=== PATIENT | female | born 1995 | race Caucasian/White ===

== ENCOUNTER 2023-05-02 15:09 | Emergency (ER) | payer SELFPAY ==
[2023-05-02 16:31] LABS: APPEARANCE,URINE CLOUDY; BILIRUBIN,URINE NEGATIVE (NEGATIVE); COLOR,URINE YELLOW; GLUCOSE,URINE NEGATIVE (NEGATIVE); KETONES,URINE NEGATIVE (NEGATIVE); LEUKOCYTE ESTERASE,URINE SMALL (NEGATIVE); NITRITE,URINE NEGATIVE (NEGATIVE); OCCULT BLOOD,URINE NEGATIVE (NEGATIVE); PROTEIN,URINE NEGATIVE (NEGATIVE); UROBILINOGEN,URINE 0.2 EU/dL (<2.0)
[2023-05-02 16:38] LABS: AMORPHOUS SEDIMENT,URINE MANY (NEGATIVE); BACTERIA,URINE FEW (NEGATIVE); EPITHELIAL CELLS,URINE OCCASIONAL (NONE-FEW); RBC,URINE 0-2 (0-2/HPF)
[2023-05-02 16:38] LABS: BASOPHILS ABSOLUTE AUTO 0.01 K/uL (0.00-0.20); BASOPHILS PERCENT AUTO 0.1 % (0.0-1.0); EOSINOPHILS ABSOLUTE AUTO 0.03 K/uL (0.00-0.45); EOSINOPHILS PERCENT AUTO 0.4 % (0.0-6.0); HEMOGLOBIN 12.7 g/dL (12.0-16.0); IMMATURE GRAN ABSOLUTE AUTO 0.02 K/uL (0.00-0.05); IMMATURE GRAN PERCENT AUTO 0.3 % (0.0-0.4); LYMPHOCYTES ABSOLUTE AUTO 1.52 K/uL (1.00-4.80); LYMPHOCYTES PERCENT AUTO 21.6 % (24.0-44.0); MEAN CORPUSCULAR HEMOGLOBIN 31.4 pg (28.0-32.0); MEAN CORPUSCULAR HGB CONC 35.3 g/dL (32.0-36.0); MEAN CORPUSCULAR VOLUME 88.9 fL (83.0-99.0); MEAN PLATELET VOLUME 10.6 fL (9.4-12.3); MONOCYTES ABSOLUTE AUTO 0.48 K/uL (0.00-0.80); MONOCYTES PERCENT AUTO 6.8 % (0.0-8.0); NEUTROPHILS ABSOLUTE AUTO 4.99 K/uL (1.80-7.70); NEUTROPHILS PERCENT AUTO 70.8 % (41.0-71.0); PLATELET COUNT,PLT 192 K/uL (150-400); RED BLOOD CELL COUNT 4.05 M/uL (4.10-5.30); WHITE BLOOD CELL COUNT,WBC 7.05 K/uL (3.9-11.3)
[2023-05-02 16:39] LABS: FINE GRANULAR CASTS,URINE RARE (NEGATIVE)
[2023-05-02 17:05] LABS: A/G RATIO 0.8 (0.9-1.6); ALBUMIN 3.2 g/dL (3.4-5.0); BILIRUBIN TOTAL 0.2 mg/dL (0.2-1.0); CALCIUM 9.1 mg/dL (8.5-10.1); CARBON DIOXIDE,CO2 29.9 mmol/L (21.0-32.0); CREATININE 0.5 mg/dL (0.6-1.0); EST CRCL DRUG DOSING (CG) 147.23 mL/min; POTASSIUM,K 4.1 mmol/L (3.5-5.1); PROTEIN TOTAL,TP 7.1 g/dL (6.4-8.2)
[2023-05-02] MEDS ORDERED: Cephalexin 500 MG Cap PO STA (18:05)
== END 2023-05-02 18:16 | disposition home or self-care (01) ==
LOC: EDBD 15:09 → MERGE 15:09 → MW.ED 15:09
DX: O99.891 Other specified diseases and conditions complicating pregnancy (principal); O23.92 Unspecified genitourinary tract infection in pregnancy, second trimester; O99.322 Drug use complicating pregnancy, second trimester; Z3A.14 14 weeks gestation of pregnancy
CPT/HCPCS: 36415; 76801; 80053; 81001; 85025; 87086; 99284; A9270; 99283

== ENCOUNTER 2023-10-21 14:06 | Inpatient (IN) | payer MEDICAID ==
[2023-10-21] MEDS ORDERED: Sodium Chloride 0.9% 2.5 ML Syringe FLUSH PRN (15:52)
[2023-10-21] MEDS ORDERED: Sodium Chloride 0.9% 10 ML Syringe FLUSH PRN (15:52)
[2023-10-21] MEDS ORDERED: Citric Acid/Sodium Citrate Solution 30 ML Cup PO ONE (15:52)
[2023-10-21] MEDS ORDERED: Sodium Chloride 0.9% 20 ML SDV IV PRN (15:52)
[2023-10-21] MEDS ORDERED: ceFAZolin 2 GM in Sodium Chloride 0.9% 50 ML IV ONE (15:52)
[2023-10-21] MEDS ORDERED: Oxytocin/0.9 % Sodium Chloride 30 UNIT/500 ML BAG IV SCH (16:00)
[2023-10-21] MEDS: Lactated Ringers 1,000 ML IV SCH ×2 (16:10→22:18)
[2023-10-21 16:33] LABS: HEMATOCRIT 36.9 % (37.0-47.0); HEMOGLOBIN 12.4 g/dL (12.0-16.0); MEAN CORPUSCULAR HEMOGLOBIN 31.3 pg (28.0-32.0); MEAN CORPUSCULAR HGB CONC 33.6 g/dL (32.0-36.0); MEAN CORPUSCULAR VOLUME 93.2 fL (83.0-99.0); MEAN PLATELET VOLUME 10.4 fL (9.4-12.3); PLATELET COUNT,PLT 203 K/uL (150-400); RED BLOOD CELL COUNT 3.96 M/uL (4.10-5.30); WHITE BLOOD CELL COUNT,WBC 7.65 K/uL (3.9-11.3)
[2023-10-21] MEDS ORDERED: ePHEDrine 50 MG/ML SDV IVPUSH PRN ×3 (16:37→17:40)
[2023-10-21] MEDS ORDERED: Phenylephrine HCl In 0.9% NaCl 1 MG/10 ML Syringe IVPUSH PRN (16:37)
[2023-10-21] MEDS ORDERED: Ropivacaine HCl/PF 400 MG in Premix Bag 1 BAG EPIDUR SCH (16:45)
[2023-10-21] MEDS ORDERED: Ropivacaine 0.5% 5 MG/ML 30 ML SDV ONE (17:12)
[2023-10-21] MEDS ORDERED: Ketorolac 30 MG/ML SDV ONE (17:12)
[2023-10-21] MEDS ORDERED: Dexamethasone 4 MG/ML 5 ML MDV ONE (17:12)
[2023-10-21] MEDS ORDERED: Ondansetron 4 MG/2 ML SDV ONE (17:12)
[2023-10-21] MEDS ORDERED: ePHEDrine 50 MG/ML SDV ONE (17:12)
[2023-10-21] MEDS ORDERED: Phenylephrine 1% 10 MG/ML SDV ONE (17:12)
[2023-10-21] MEDS ORDERED: Oxytocin 10 Units/1 ML SDV ONE ×2 (17:12→18:18)
[2023-10-21] MEDS ORDERED: Water For Injection, Sterile 20 ML ONE (17:12)
[2023-10-21] MEDS ORDERED: Tranexamic Acid 1,000 MG/10 ML Vial ONE (17:12)
[2023-10-21] MEDS ORDERED: dexmedeTOMIDine HCl 200 MCG/2 ML SDV ONE (17:12)
[2023-10-21] MEDS ORDERED: ceFAZolin 2 GM Vial ONE (17:13)
[2023-10-21] MEDS ORDERED: fentaNYL 100 MCG/2 ML SDV ONE (17:15)
[2023-10-21] MEDS ORDERED: Morphine PF 10 MG/10 ML SDV ONE (17:15)
[2023-10-21] MEDS ORDERED: Metoclopramide 10 MG/2 ML SDV IVPUSH PRN (17:40)
[2023-10-21] MEDS ORDERED: droPERidol 5 MG/2 ML SDV IVPUSH PRN (17:40)
[2023-10-21] MEDS ORDERED: Naloxone 0.4 MG/ML SDV IVPUSH PRN (17:40)
[2023-10-21] MEDS ORDERED: Morphine 2 MG/ML SYRINGE IVPUSH PRN (17:40)
[2023-10-21] MEDS ORDERED: Ondansetron 4 MG/2 ML SDV IVPUSH PRN ×2 (17:40→19:01)
[2023-10-21] MEDS ORDERED: HYDROmorphone 1 MG/ML Syringe IVPUSH PRN (17:40)
[2023-10-21] MEDS ORDERED: diphenhydrAMINE 50 MG/ML SDV IVPUSH PRN ×2 (17:40→19:01)
[2023-10-21] MEDS ORDERED: fentaNYL 50 MCG/ML SDV IVPUSH PRN ×2 (17:40)
[2023-10-21] MEDS ORDERED: Albuterol 0.083% 2.5 MG/3 ML Neb Soln NEB PRN (17:40)
[2023-10-21] MEDS ORDERED: Scopalamine 1mg/3day Transdermal Patch TOP SCH (17:45)
[2023-10-21] MEDS ORDERED: Calcium Chloride 10% 1 GM/10 ML Syringe ONE (18:40)
[2023-10-21] MEDS ORDERED: Acetaminophen/oxyCODONE 325-5 MG Tab PO PRN (19:01)
[2023-10-21] MEDS ORDERED: Methylergonovine 0.2 MG/1 ML Amp IM PRN (19:01)
[2023-10-21] MEDS ORDERED: Oxytocin 10 Units/1 ML SDV IM PRN (19:01)
[2023-10-21] MEDS ORDERED: Lanolin 100% Cream 7 GM Tube TOP PRN (19:01)
[2023-10-21] MEDS ORDERED: Bisacodyl 10 MG Supp RECTAL PRN (19:01)
[2023-10-21] MEDS ORDERED: Misoprostol 200 MCG Tab RECTAL PRN (19:01)
[2023-10-21 19:31] LABS: PH,UMBILICAL ARTERIAL 7.275 (7.18-7.38); PH,UMBILICAL VENOUS 7.313 (7.25-7.45)
[2023-10-21] MEDS: Ondansetron 4 MG/2 ML SDV IVPUSH PRN (19:47)
[2023-10-21] MEDS: Acetaminophen 1,000 MG in Premix Bag 1 BAG IV SCH (20:48)
[2023-10-21] MEDS: Docusate Sodium 100 MG Cap PO SCH (20:48)
[2023-10-21] MEDS: Ketorolac 30 MG/ML SDV IVPUSH SCH (23:05)
[2023-10-21] MEDS: Simethicone 80 MG Tab.Chew PO SCH (23:06)
[2023-10-22 06:17] LABS: HEMATOCRIT 31.4 % (37.0-47.0); HEMOGLOBIN 10.4 g/dL (12.0-16.0)
[2023-10-22] MEDS: Ibuprofen 800 MG Tab PO PRN (20:17)
[2023-10-23] MEDS: Acetaminophen/oxyCODONE 325-5 MG Tab PO PRN ×2 (02:56→12:13)
== END 2023-10-23 17:00 | disposition home or self-care (01) | DRG 787 ==
LOC: MW.OBCHECK 14:06 → MW.OB 14:09 → MW.OBCHECK 15:52 → MW.OB 15:53 → OBSVTOIN 15:53 → MW.OB 22:23
PROVIDERS: ADMIT Obstetrics & Gynecology; ATTEND Obstetrics & Gynecology Obstetrics
PROC: 10D00Z1 Extraction of Products of Conception, Low, Open Approach (ICD-10-PCS; principal; 2023-10-21 18:12)
DX: O34.211 Maternal care for low transverse scar from previous cesarean delivery (principal); D62 Acute posthemorrhagic anemia; Z37.0 Single live birth; Z3A.38 38 weeks gestation of pregnancy; O90.81 Anemia of the puerperium
CPT/HCPCS: 01961; 36415; 59025; 64488; 82803; 84112; 85014; 85018; 85027; 86592; 86850; 86900; 86901; A9270-GY; J0131; J0690; J1100; J1885; J2274; J2371; J2405; J2590; J2795; J3010; J3490; J7120